=== PATIENT | female | born 1955 | race Caucasian/White ===

== ENCOUNTER 2016-08-04 00:19 | Emergency (ER) | payer MEDICAID | END 2016-08-04 01:40 | disposition home or self-care (01) | LOC: D.ER 00:19 | DX: I10 Essential (primary) hypertension (principal); F41.1 Generalized anxiety disorder; M26.609 Unspecified temporomandibular joint disorder, unspecified side ==

== ENCOUNTER 2017-03-15 18:24 | Emergency (ER) | payer MEDICAID | END 2017-03-15 21:55 | disposition home or self-care (01) | LOC: D.ER 18:24 | DX: J06.9 Acute upper respiratory infection, unspecified (principal); J20.9 Acute bronchitis, unspecified; H66.92 Otitis media, unspecified, left ear; I10 Essential (primary) hypertension ==

== ENCOUNTER 2017-12-28 13:03 | Emergency (ER) | payer MEDICAID ==
[~2017-12-28] VITALS: Ht 170.2 cm; Wt 72.7 kg
[2017-12-28 13:12] VITALS: BP 120/77; Ht 170.2 cm; Wt 72.7 kg
[2017-12-28] MEDS ORDERED: BACLOFEN10 MG PO (14:13)
[2017-12-28] MEDS ORDERED: CLONAZEPAM2 MG/TAB (14:14)
[2017-12-28] MEDS ORDERED: NORVASC5 MG PO (14:14)
[2017-12-28] MEDS ORDERED: CATAPRES0.1 MG (14:15)
[2017-12-28] MEDS ORDERED: VALTREX500 MG PO (14:16)
[2017-12-28] MEDS ORDERED: BUSPAR5 MG (14:16)
== END 2017-12-28 15:34 | disposition home or self-care (01) ==
LOC: D.ER 13:03
DX: G43.909 Migraine, unspecified, not intractable, without status migrainosus (principal); I10 Essential (primary) hypertension; M54.2 Cervicalgia

== ENCOUNTER 2019-01-16 22:03 | Emergency (ER) | payer MEDICAID ==
[~2019-01-16] VITALS: Ht 170.2 cm; Wt 72.7 kg
[~2019-01-16 22:03] MED LIST: BACLOFEN10 MG PO; BUSPAR5 MG; CATAPRES0.1 MG; CLONAZEPAM2 MG/TAB; NORVASC5 MG PO; VALTREX500 MG PO
[2019-01-16 22:15] VITALS: BP 142/82; Ht 170.2 cm; Wt 72.7 kg
== END 2019-01-17 02:09 | disposition left against medical advice (07) ==
LOC: D.ER 22:03
DX: G43.909 Migraine, unspecified, not intractable, without status migrainosus (principal); I10 Essential (primary) hypertension; M54.2 Cervicalgia